=== PATIENT | female | born 1980 | race African-American/Black ===

== ENCOUNTER 2016-03-21 20:03 | Emergency (ER) | payer MEDICAID ==
[~2016-03-21] VITALS: Ht 167.6 cm; Wt 79.0 kg
[~2016-03-21 20:03] MED LIST: BUTA1CAP PO; CLIN1CAP5 PO; ULTR50TA5 PO
[2016-03-21 20:18] VITALS: BP 109/78; PULSE 92; RESP 18; TEMP 98.8; O2SAT 100
--- NOTE | 2016-03-21 22:01 | PD ---
HPI Chief Complaint: Skin Problem Time Seen by Provider: 21:56 Travel History International Travel<30 days: No Contact w/Intl Traveler<30days: No Traveled to known affect area: No History of Present Illness HPI 35-year-old female presents to the emergency department by private transportation for complaint of intermittent bruising and spots that look like a burn that occur intermittently over the past 6 months. Patient states areas are tender or sore throat time and are present but then resolved spontaneously. Patient denies any injuries that she is aware of. Patient's had no falls or contusions. Patient is not noticed these areas on the face neck had chest trunk or upper extremities. Patient only notices areas to her buttock and upper legs. Patient states seems to sputum lower legs and feet. Other family members with similar symptoms. Patient is not been seen for this complaint over the past 6 months. Patient's had no change in weight dietary intake skin tear or mucous membranes. Last menstrual period was one month ago and normal for her. Patient denies any history of autoimmune disorder or family history of autoimmune disorder. The patient rates discomfort as 0/10 intensity. Patient's had no nights sweats no chest pain no shortness of breath no cough no hemoptysis. Patient does not smoke cigarettes does not drink alcoholic beverages. PFSH Past Medical History Narrative Medical Ovarian cyst sponge kidney tubal ligation migraines occasional alcohol use family history grandmother with cancer unknown type nursing notes reviewed Cardiovascular Problems: No Diminished Hearing: No Gastrointestinal Disorders: No Genitourinary: Yes (DX AGE 16: "TOLD ME I HAD A SPONGE KIDNEY, LEFT SIDE") Musculoskeletal: No Neurologic: No Respiratory: No Immunizations Current: No Migraines: Yes Tetanus Vaccination: < 5 Years Influenza Vaccination: No ?: Not LMP: 02/18/17 : 5 Para: 5 Miscarriage: 0 : 0 Ovarian Cysts: Yes Tubal Ligation: Yes Past Surgical History Abdominal Surgery: No Cardiac Surgery: No Ear Surgery: No Endocrine Surgery: No Eye Surgery: No Genitourinary Surgery: No Gynecologic Surgery: Yes (TUBAL) Neurologic Surgery: No Oral Surgery: No Thoracic Surgery: No Other Surgery: No Social History Alcohol Use: Yes ("MAYBE TWICE A YEAR") Tobacco Use: No Substance Use: No Allergies-Medications (Allergen,Severity, Reaction): Coded Allergies: No Known Allergies (Verified , 03/21/16) Reported Meds & Prescriptions Reported Meds & Active Scripts Active No Active Prescriptions or Reported Medications Review of Systems Except as stated in HPI: all other systems reviewed are Neg General / Constitutional: No: Fever, Chills Eyes: No: Visual changes HENT: Positive: Other (no mucous membrane involvement), No: Headaches, Congestion Cardiovascular: No: Chest Pain or Discomfort, Diaphoresis, Syncope, Dyspnea on exertion Respiratory: No: Shortness of Breath, Hemoptysis Gastrointestinal: No: Nausea, Vomiting, Abdominal Pain Genitourinary: No: Dysuria, Hematuria, Flank Pain, Discharge, Vaginal Bleeding Musculoskeletal: No: Myalgias, Arthralgias Skin: No Rash, No Itching, No Lumps Neurologic: No: Weakness, Dizziness, Syncope, Focal Abnormalities, Coordination Problem Psychiatric: No: Anxiety Hematologic/Lymphatic: Positive: Easy Bruising Physical Exam Narrative GENERAL: Well-developed alert female in no acute distress no respiratory distress SKIN: Warm and dry. HEAD: Normocephalic. EYES: No scleral icterus. No injection or drainage. NECK: Supple, trachea midline. No JVD or lymphadenopathy. CARDIOVASCULAR: Regular rate and rhythm without murmurs, gallops, or rubs. RESPIRATORY: Breath sounds equal bilaterally. No accessory muscle use. GASTROINTESTINAL: Abdomen soft, non-tender, nondistended. MUSCULOSKELETAL: No cyanosis, or edema. BACK: Nontender without obvious deformity. No CVA tenderness. Data Data Last Documented VS Vital Signs Date Time Temp Pulse Resp B/P Pulse Ox O2 Delivery O2 Flow Rate FiO2 03/21/16 20:18 98.8 92 18 109/78 100 Orders Complete Blood Count With Diff (03/21/16 21:54) Act Partial Throm Time (Ptt) (03/21/16 21:54) Prothrombin Time / Inr (Pt) (03/21/16 21:54) Basic Metabolic Panel (Bmp) (03/21/16 21:54) Urinalysis - C+S If Indicated (03/21/16 21:54) Ed Urine Pregnancytest Poc (03/21/16 21:54) MDM Medical Decision Making Medical Screen Exam Complete: Yes Emergency Medical Condition: Yes Medical Record Reviewed: Yes Differential Diagnosis Coagulopathy, vasculitis, viral syndrome, autoimmune disorder Narrative Course Specimens collected and sent for resulting Scripts No Active Prescriptions or Reported Meds Jackie Alatorre MD Mar 21, 2016 22:01
== END 2016-03-21 22:56 | disposition left against medical advice (07) ==
LOC: PHED 20:03
DX: T14.8 Other injury of unspecified body region (principal)
CPT/HCPCS: 99283

== ENCOUNTER 2016-03-25 13:32 | Emergency (ER) | payer MEDICAID ==
[~2016-03-25] VITALS: Ht 167.6 cm; Wt 78.5 kg
[2016-03-25 13:39] VITALS: BP 116/60; PULSE 85; RESP 16; TEMP 98.3; O2SAT 100
--- NOTE | 2016-03-25 14:23 | PD ---
HPI Chief Complaint: Skin Problem Time Seen by Provider: 14:00 Travel History International Travel<30 days: No Contact w/Intl Traveler<30days: No Traveled to known affect area: No History of Present Illness HPI Patient is a 35 year old female who presents to the emergency department for evaluation of spontaneous bruising. Patient states it's been ongoing for approximately 6 months. She states that she'll have random bruises occur without any injury or trauma. She denies any heavy menstrual cycles, stating that her cycles last approximately 3 days in duration. She denies any other physical complaints at this time. She does report a history of migraines and anemia. PFSH Past Medical History Hx Anticoagulant Therapy: No Anemia: Yes Cardiovascular Problems: No Diabetes: No Diminished Hearing: No Gastrointestinal Disorders: No Genitourinary: Yes (DX AGE 16: "TOLD ME I HAD A SPONGE KIDNEY, LEFT SIDE") Musculoskeletal: No Neurologic: No Respiratory: No Immunizations Current: No Migraines: Yes ?: Not : 5 Para: 5 Miscarriage: 0 : 0 Ovarian Cysts: Yes Tubal Ligation: Yes Past Surgical History Abdominal Surgery: No Cardiac Surgery: No Ear Surgery: No Endocrine Surgery: No Eye Surgery: No Genitourinary Surgery: No Gynecologic Surgery: Yes (TUBAL) Neurologic Surgery: No Oral Surgery: No Thoracic Surgery: No Other Surgery: No Social History Alcohol Use: Yes ("MAYBE TWICE A YEAR") Tobacco Use: No Substance Use: No Allergies-Medications (Allergen,Severity, Reaction): Coded Allergies: No Known Allergies (Verified , 03/25/16) Reported Meds & Prescriptions Reported Meds & Active Scripts Active No Active Prescriptions or Reported Medications Review of Systems Except as stated in HPI: all other systems reviewed are Neg General / Constitutional: No: Fever, Chills HENT: No: Headaches, Lightheadedness Cardiovascular: No: Chest Pain or Discomfort Respiratory: No: Shortness of Breath Gastrointestinal: No: Nausea, Vomiting, Diarrhea, Abdominal Pain, Hematochezia Genitourinary: No: Dysuria, Hematuria Musculoskeletal: No: Myalgias Neurologic: No: Dizziness Hematologic/Lymphatic: Positive: Easy Bruising Physical Exam Narrative GENERAL: Well-nourished, well-developed patient. SKIN: Warm and dry. No significant bruising noted. HEAD: Normocephalic. EYES: No scleral icterus. No injection or drainage. NECK: Supple, trachea midline. No JVD or lymphadenopathy. CARDIOVASCULAR: Regular rate and rhythm without murmurs, gallops, or rubs. RESPIRATORY: Breath sounds equal bilaterally. No accessory muscle use. GASTROINTESTINAL: Abdomen soft, non-tender, nondistended. MUSCULOSKELETAL: No cyanosis, or edema. BACK: Nontender without obvious deformity. No CVA tenderness. Data Data Last Documented VS Vital Signs Date Time Temp Pulse Resp B/P Pulse Ox O2 Delivery O2 Flow Rate FiO2 03/25/16 13:39 98.3 85 16 116/60 100 Orders Complete Blood Count With Diff (03/25/16 14:12) Act Partial Throm Time (Ptt) (03/25/16 14:12) Prothrombin Time / Inr (Pt) (03/25/16 14:12) Labs Laboratory Tests Test 03/25/16 14:55 White Blood Count 7.6 TH/MM3 Red Blood Count 3.78 MIL/MM3 Hemoglobin 12.4 GM/DL Hematocrit 35.5 % Mean Corpuscular Volume 93.9 FL Mean Corpuscular Hemoglobin 32.8 PG Mean Corpuscular Hemoglobin 35.0 % Concent Red Cell Distribution Width 12.4 % Platelet Count 312 TH/MM3 Mean Platelet Volume 8.7 FL Neutrophils (%) (Auto) 67.8 % Lymphocytes (%) (Auto) 23.5 % Monocytes (%) (Auto) 5.1 % Eosinophils (%) (Auto) 3.0 % Basophils (%) (Auto) 0.6 % Neutrophils # (Auto) 5.2 TH/MM3 Lymphocytes # (Auto) 1.8 TH/MM3 Monocytes # (Auto) 0.4 TH/MM3 Eosinophils # (Auto) 0.2 TH/MM3 Basophils # (Auto) 0.0 TH/MM3 CBC Comment DIFF FINAL Differential Comment Prothrombin Time 11.4 SEC Prothromb Time International 1.0 RATIO Ratio Activated Partial 28.9 SEC Thromboplast Time MDM Medical Decision Making Medical Screen Exam Complete: Yes Emergency Medical Condition: Yes Interpretation(s) Vital Signs Date Time Temp Pulse Resp B/P Pulse Ox O2 Delivery O2 Flow Rate FiO2 03/25/16 13:39 98.3 85 16 116/60 100 Differential Diagnosis Coagulopathy versus bruising versus anemia versus autoimmune disease versus other Narrative Course Patient's a 35-year-old female who presented to emergency department for evaluation easy bruising. Patient denies any injuries or traumas that would've caused the bruising. She denies any heavy menstrual cycles. She states her cycles last approximately 3 days. She does endorse using ibuprofen frequently for her body aches. CBC, coags are unremarkable. Patient was reassured at this time that she was not anemic. She was encouraged to back off use of ibuprofen as this can thin the blood positive exacerbating the bruising. She was encouraged to follow-up with her primary care provider for further evaluation and management. She was encouraged to return to emergency department for any new or worsening symptoms. Patient verbalized understanding of these instructions, patient reported feeling relieved at this time. Patient is stable for discharge. Diagnosis Primary Impression: Easy bruising Referrals: Primary Care Physician Patient Instructions: General Instructions Additional Instructions: Follow-up with her primary doctor Alternate use of ibuprofen with acetaminophen for body aches and pain Return to emergency department for any new or worsening symptoms Med/Other Pt SpecificInfo: No Change to Meds Scripts No Active Prescriptions or Reported Meds Disposition: 01 DISCHARGE HOME Condition: Stable Avril Krishnamurthy Mar 25, 2016 14:23
[2016-03-25 15:08] LABS: AUTOMATED NEUTROPHIL # 5.2 TH/MM3 (1.8-7.7); BASOPHIL % 0.6 % (0.0-2.0); EOSINOPHIL # 0.2 TH/MM3 (0-0.4); HEMATOCRIT 35.5 % (35.0-46.0); HEMO FLAGS DIFF FINAL; LYMPH % 23.5 % (9.0-44.0); LYMPHOCYTE # 1.8 TH/MM3 (1.0-4.8); MEAN CELL VOLUME 93.9 FL (80.0-100.0); MEAN CORPUSCULAR HEMOGLOBIN 32.8 PG (27.0-34.0); MONO % 5.1 % (0.0-8.0); NEUT % 67.8 % (16.0-70.0); PLATELET COUNT 312 TH/MM3 (150-450); RED BLOOD COUNT 3.78 MIL/MM3 (4.00-5.30); RED CELL DISTRIBUTION WIDTH 12.4 % (11.6-17.2); WHITE BLOOD COUNT 7.6 TH/MM3 (4.0-11.0)
[2016-03-25 15:17] LABS: APTT (PATIENT) 28.9 SEC (24.3-30.1); PROTHROMBIN TIME - PATIENT 11.4 SEC (9.8-11.6)
== END 2016-03-25 16:29 | disposition home or self-care (01) ==
LOC: PHEFT 13:32
DX: R23.8 Other skin changes (principal); Z79.899 Other long term (current) drug therapy; Z86.69 Personal history of other diseases of the nervous system and sense organs; Z86.2 Personal history of diseases of the blood and blood-forming organs and certain disorders involving the immune mechanism; Z87.448 Personal history of other diseases of urinary system
CPT/HCPCS: 85025; 85610; 85730; 99283

== ENCOUNTER 2016-05-10 22:34 | Emergency (ER) | payer MEDICAID ==
[~2016-05-10] VITALS: Ht 167.6 cm; Wt 77.2 kg
[2016-05-10 22:39] VITALS: BP 109/67; PULSE 77; RESP 16; TEMP 98.6; O2SAT 97
== END 2016-05-10 23:11 | disposition left against medical advice (07) ==
LOC: PHED 22:34
DX: M79.642 Pain in left hand (principal); R22.32 Localized swelling, mass and lump, left upper limb; Z53.21 Procedure and treatment not carried out due to patient leaving prior to being seen by health care provider
CPT/HCPCS: 99281

== ENCOUNTER 2016-07-31 08:00 | Emergency (ER) | payer MEDICAID ==
[~2016-07-31] VITALS: Ht 167.6 cm; Wt 79.0 kg
[2016-07-31 08:04] VITALS: BP 112/67; PULSE 75; RESP 16; TEMP 98.2; O2SAT 100
[2016-07-31] MEDS ORDERED: IBUPROFEN 600 MG TAB PO ONE (08:30)
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
[2016-07-31 09:22] VITALS: RESP 16
== END 2016-07-31 09:23 | disposition home or self-care (01) ==
LOC: PHED 08:00
DX: S63.502A Unspecified sprain of left wrist, initial encounter (principal); D64.9 Anemia, unspecified; Y04.8XXA Assault by other bodily force, initial encounter
CPT/HCPCS: 73110; 99283

== ENCOUNTER 2016-10-17 10:30 | Emergency (ER) | payer MEDICAID ==
[~2016-10-17] VITALS: Ht 167.6 cm; Wt 80.0 kg
[2016-10-17 10:40] VITALS: BP 112/59; PULSE 74; RESP 16; TEMP 98.1; O2SAT 100
--- NOTE | 2016-10-17 11:15 | PD ---
HPI Chief Complaint: Headache Time Seen by Provider: 11:14 Travel History International Travel<30 days: No Contact w/Intl Traveler<30days: No Traveled to known affect area: No History of Present Illness HPI This 35-year-old female is complaining of headache and left-sided neck pain. She has a history of migraine headaches. In the past she has taken Midrin with good pain relief. She was recently changed to Fioricet but it made her nauseated. She's also been having pain in the left side of her neck. 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 She has been working 7 days a week recently the pain is aggravated when she works. She does not have weakness in the arm. There is been no vomiting. She is unable to work today because the headache PFSH Past Medical History Hx Anticoagulant Therapy: No Anemia: Yes Cardiovascular Problems: No Diabetes: No Diminished Hearing: No Gastrointestinal Disorders: No Genitourinary: Yes (DX AGE 16: "TOLD ME I HAD A SPONGE KIDNEY, LEFT SIDE") Musculoskeletal: No Neurologic: No Respiratory: No Immunizations Current: No Migraines: Yes Tetanus Vaccination: Unknown Influenza Vaccination: No ?: Not : 5 Para: 5 Miscarriage: 0 : 0 Ovarian Cysts: Yes Tubal Ligation: Yes (states tubes removed in 2010) Past Surgical History Abdominal Surgery: No Cardiac Surgery: No Ear Surgery: No Endocrine Surgery: No Eye Surgery: No Genitourinary Surgery: No Gynecologic Surgery: Yes (TUBAL- states tubes removed 2010) Neurologic Surgery: No Oral Surgery: No Thoracic Surgery: No Other Surgery: No Social History Alcohol Use: Yes ("MAYBE TWICE A YEAR" wine) Tobacco Use: No Substance Use: No Allergies-Medications (Allergen,Severity, Reaction): Coded Allergies: No Known Allergies (Verified , 10/17/16) Reported Meds & Prescriptions Reported Meds & Active Scripts Active No Active Prescriptions or Reported Medications Review of Systems General / Constitutional: No: Fever, Chills Eyes: No: Diploplia HENT: Positive: Headaches Cardiovascular: No: Chest Pain or Discomfort, Palpitations Respiratory: No: Cough, Shortness of Breath Gastrointestinal: No: Nausea, Vomiting Genitourinary: No: Urgency, Frequency Musculoskeletal: No: Myalgias Skin: No Rash, No Itching Neurologic: No: Weakness, Dizziness Endocrine: No: Heat Intolerance, Cold Intolerance Hematologic/Lymphatic: No: Easy Bruising Physical Exam Narrative GENERAL: Well-developed female SKIN: Focused skin assessment warm/dry. HEAD: Atraumatic. Normocephalic. EYES: Pupils equal and round. No scleral icterus. No injection or drainage. ENT: No nasal bleeding or discharge. Mucous membranes pink and moist. NECK: Trachea midline. No JVD. Some tenderness in the muscles left side of the neck and supraclavicular area CARDIOVASCULAR: Regular rate and rhythm. No murmur appreciated. RESPIRATORY: No accessory muscle use. Clear to auscultation. Breath sounds equal bilaterally. GASTROINTESTINAL: Abdomen soft, non-tender, nondistended. Hepatic and splenic margins not palpable. MUSCULOSKELETAL: No obvious deformities. No clubbing. No cyanosis. No edema. NEUROLOGICAL: Awake and alert. No obvious cranial nerve deficits. Motor grossly within normal limits. Normal speech. PSYCHIATRIC: Appropriate mood and affect; insight and judgment normal. Data Data Last Documented VS Vital Signs Date Time Temp Pulse Resp B/P Pulse Ox O2 Delivery O2 Flow Rate FiO2 10/17/16 10:40 98.1 74 16 112/59 100 MDM Medical Decision Making Medical Screen Exam Complete: Yes Emergency Medical Condition: Yes Medical Record Reviewed: Yes Differential Diagnosis Differential includes migraine headache, muscular strain, Narrative Course Patient appears to have muscular pain in the left side of her neck and I will prescribe some Flexeril. Midrin as worked well for her migraines in the past and I'll also prescribe some Midrin Diagnosis Primary Impression: Migraine headache Additional Impression: Musculoskeletal strain Scripts [id number] (Prodrin)65-20-325 Mg Tab1 Tab PO QID PRN ( MIGRAINE HEADACHE) #30 TAB Ref 0 Prov:Nhan Jacobsen MD 10/17/16 Cyclobenzaprine (Flexeril)10 Mg Tab10 Mg PO TID #30 TAB Ref 0 Prov:Nhan Jacobsen MD 10/17/16 Disposition: 01 DISCHARGE HOME Condition: Stable Nhan Jacobsen MD Oct 17, 2016 11:15
[2016-10-17] MEDS ORDERED: ACET1TAB17 PO (11:23)
[2016-10-17] MEDS ORDERED: CYCL1TAB29 PO (11:23)
== END 2016-10-17 11:51 | disposition home or self-care (01) ==
LOC: PHED 10:30
DX: G43.909 Migraine, unspecified, not intractable, without status migrainosus (principal); M54.2 Cervicalgia; Z86.69 Personal history of other diseases of the nervous system and sense organs; Z86.2 Personal history of diseases of the blood and blood-forming organs and certain disorders involving the immune mechanism; Z87.448 Personal history of other diseases of urinary system
CPT/HCPCS: 99283

== ENCOUNTER 2016-11-20 09:47 | Emergency (ER) | payer MEDICAID ==
[~2016-11-20] VITALS: Ht 167.6 cm; Wt 82.0 kg
[~2016-11-20 09:47] MED LIST changes: +ACET1TAB17 PO; -BUTA1CAP PO; -CLIN1CAP5 PO; +CYCL1TAB29 PO; -ULTR50TA5 PO
[2016-11-20 09:59] VITALS: BP 113/59; PULSE 84; RESP 18; TEMP 98.1; O2SAT 100
[2016-11-20] MEDS ORDERED: ASPIRIN 81 MG CHEW TAB PO ONE (10:00)
[2016-11-20 10:04] VITALS: O2SAT 100
[2016-11-20 10:11] LABS: AUTOMATED NEUTROPHIL # 5.2 TH/MM3 (1.8-7.7); BASOPHIL % 0.2 % (0.0-2.0); EOSINOPHIL # 0.3 TH/MM3 (0-0.4); EOSINOPHIL % 3.6 % (0.0-4.0); HEMATOCRIT 35.5 % (35.0-46.0); LYMPHOCYTE # 1.9 TH/MM3 (1.0-4.8); MEAN CORPUSCULAR HGB CONC 34.1 % (32.0-36.0); MONO % 5.6 % (0.0-8.0); NEUT % 66.6 % (16.0-70.0); PLATELET COUNT 342 TH/MM3 (150-450); RED BLOOD COUNT 3.77 MIL/MM3 (4.00-5.30); RED CELL DISTRIBUTION WIDTH 13.2 % (11.6-17.2); WHITE BLOOD COUNT 7.8 TH/MM3 (4.0-11.0)
[2016-11-20 10:12] LABS: HEMO FLAGS DIFF FINAL
[2016-11-20] MEDS: SODIUM CHLORIDE 0.9% FLUSH 10 ML FLUSH IVF PRN ×2 (10:12→10:35)
[2016-11-20 10:19] LABS: CHLORIDE 103 MEQ/L (98-107); POTASSIUM 3.5 MEQ/L (3.5-5.1); SODIUM (NA) 138 MEQ/L (136-145)
[2016-11-20 10:22] LABS: ANION GAP 8 MEQ/L (5-15); BICARBONATE 27.4 MEQ/L (21.0-32.0); BLOOD UREA NITROGEN 6 MG/DL (7-18); MAGNESIUM 2.1 MG/DL (1.5-2.5)
[2016-11-20 10:23] LABS: APTT (PATIENT) 28.5 SEC (24.3-30.1); PROTHROMBIN TIME - PATIENT 10.9 SEC (9.8-11.6)
--- NOTE | 2016-11-20 10:24 | RADRPT ---
EXAM DATE/TIME: 11/20/2016 10:07 [facility] COMPARISON: No previous studies available for comparison. INDICATIONS : Left side chest pain, short of breath. MEDICAL HISTORY : None. SURGICAL HISTORY : None. ENCOUNTER: Initial ACUITY: 2 weeks PAIN SCORE: 10/10 LOCATION: Left chest FINDINGS: A single view of the chest demonstrates the lungs to be symmetrically aerated without evidence of mas s, infiltrate or effusion. The cardiomediastinal contours are unremarkable. Osseous structures are intact. CONCLUSION: No acute disease. Prudencio Aj MD on November 20, 2016 at 10:22 Board Certified Radiologist. This report was verified electronically.
[2016-11-20 10:26] LABS: GLOMERULAR FILTRATION RATE 114 ML/MIN (>89)
[2016-11-20 10:29] LABS: CREATINE KINASE 114 U/L (26-192)
[2016-11-20] MEDS ORDERED: IBUP800T23 PO (10:30)
--- NOTE | 2016-11-20 10:30 | PD ---
HPI . Chest pain Chief Complaint: Chest Pain Time Seen by Provider: 10:20 Travel History International Travel<30 days: No Contact w/Intl Traveler<30days: No Traveled to known affect area: No History of Present Illness HPI Patient presents with a 2 week history of left-sided chest pain. Pain has been persistent and has gotten worse over the last couple of days. She reports a constant underlying soreness in her left chest wall which is exacerbated by movement. She rates her pain at 10/10 but has not taken anything for it. She does not have any associated symptoms such as cough, fever, shortness of breath , nausea, diaphoresis. PFSH Past Medical History Hx Anticoagulant Therapy: No Anemia: Yes Cardiovascular Problems: No Diabetes: No Diminished Hearing: No Gastrointestinal Disorders: No Genitourinary: Yes (DX AGE 16: "TOLD ME I HAD A SPONGE KIDNEY, LEFT SIDE") Musculoskeletal: No Neurologic: No Respiratory: No Immunizations Current: No Migraines: Yes ?: Not : 5 Para: 5 Miscarriage: 0 : 0 Ovarian Cysts: Yes Tubal Ligation: Yes (states tubes removed in 2010) Past Surgical History Abdominal Surgery: No Cardiac Surgery: No Ear Surgery: No Endocrine Surgery: No Eye Surgery: No Genitourinary Surgery: No Gynecologic Surgery: Yes (TUBAL- states tubes removed 2010) Neurologic Surgery: No Oral Surgery: No Thoracic Surgery: No Other Surgery: No Social History Alcohol Use: Yes ("MAYBE TWICE A YEAR" wine) Tobacco Use: No Substance Use: No Allergies-Medications (Allergen,Severity, Reaction): Coded Allergies: No Known Allergies (Verified , 10/17/16) Reported Meds & Prescriptions Reported Meds & Active Scripts Active Ibuprofen 800 Mg Tab 800 Mg PO Q8H PRN Prodrin (Vuqwqliuiilvf-Quztzhkm-Rnjxckmmldqaj) 65-20-325 Mg Tab 1 Tab PO QID PRN Flexeril (Cyclobenzaprine HCl) 10 Mg Tab 10 Mg PO TID Review of Systems Except as stated in HPI: all other systems reviewed are Neg General / Constitutional: Positive: Other (no diaphoresis), No: Fever, Chills Cardiovascular: Positive: Chest Pain or Discomfort Respiratory: No: Cough, Shortness of Breath Gastrointestinal: No: Nausea Physical Exam Narrative GENERAL: Patient is awake and alert and in no distress. SKIN: warm/dry. No rashes. HEAD: Normocephalic. Atraumatic. EYES: Pupils equal and round. No scleral icterus. No injection or drainage. ENT: No nasal bleeding or discharge. Mucous membranes pink and moist. NECK: Trachea midline. Full range of motion without pain.. CARDIOVASCULAR: Regular rate and rhythm. Heart sounds are normal. RESPIRATORY: No accessory muscle use. Clear to auscultation. Breath sounds equal bilaterally. Tenderness to palpation of the left chest wall. GASTROINTESTINAL: Abdomen soft. Nontender. Bowel sounds present. Nondistended. MUSCULOSKELETAL: No obvious deformities. NEUROLOGICAL: Awake and alert. No obvious cranial nerve deficits. Motor grossly within normal limits. Normal speech. PSYCHIATRIC: Appropriate mood and affect; insight and judgment normal. Data Data Last Documented VS Vital Signs Date Time Temp Pulse Resp B/P (MAP) Pulse Ox O2 Delivery O2 Flow Rate FiO2 11/20/16 10:04 100 Room Air 11/20/16 10:00 84 20 11/20/16 09:59 98.1 113/59 (77) Orders Orders Basic Metabolic Panel (Bmp) (11/20/16 10:00) Ckmb (Isoenzyme) Profile (11/20/16 10:00) Complete Blood Count With Diff (11/20/16 10:00) Magnesium (Mg) (11/20/16 10:00) Prothrombin Time / Inr (Pt) (11/20/16 10:00) Act Partial Throm Time (Ptt) (11/20/16 10:00) Troponin I (11/20/16 10:00) Chest, Single Ap (11/20/16 10:00) Ecg Monitoring (11/20/16 10:00) Iv Access Insert/Monitor (11/20/16 10:00) Oximetry (11/20/16 10:00) Aspirin Chew (Aspirin Chew) (11/20/16 10:00) Sodium Chloride 0.9% Flush (Ns Flush) (11/20/16 10:00) CKMB (11/20/16 10:05) CKMB% (11/20/16 10:05) Labs Laboratory Tests Test 11/20/16 10:05 White Blood Count 7.8 TH/MM3 Red Blood Count 3.77 MIL/MM3 Hemoglobin 12.1 GM/DL Hematocrit 35.5 % Mean Corpuscular Volume 94.0 FL Mean Corpuscular Hemoglobin 32.0 PG Mean Corpuscular Hemoglobin Concent 34.1 % Red Cell Distribution Width 13.2 % Platelet Count 342 TH/MM3 Mean Platelet Volume 7.7 FL Neutrophils (%) (Auto) 66.6 % Lymphocytes (%) (Auto) 24.0 % Monocytes (%) (Auto) 5.6 % Eosinophils (%) (Auto) 3.6 % Basophils (%) (Auto) 0.2 % Neutrophils # (Auto) 5.2 TH/MM3 Lymphocytes # (Auto) 1.9 TH/MM3 Monocytes # (Auto) 0.4 TH/MM3 Eosinophils # (Auto) 0.3 TH/MM3 Basophils # (Auto) 0.0 TH/MM3 CBC Comment DIFF FINAL Differential Comment Prothrombin Time 10.9 SEC Prothromb Time International Ratio 1.0 RATIO Activated Partial Thromboplast Time 28.5 SEC Blood Urea Nitrogen 6 MG/DL Creatinine 0.70 MG/DL Random Glucose 92 MG/DL Calcium Level 8.5 MG/DL Magnesium Level 2.1 MG/DL Sodium Level 138 MEQ/L Potassium Level 3.5 MEQ/L Chloride Level 103 MEQ/L Carbon Dioxide Level 27.4 MEQ/L Anion Gap 8 MEQ/L Estimat Glomerular Filtration Rate 114 ML/MIN Total Creatine Kinase 114 U/L [facility] Medical Decision Making Medical Screen Exam Complete: Yes Emergency Medical Condition: Yes Interpretation(s) EKG shows a normal sinus rhythm with no acute ischemic changes. Her EKG is unchanged from previous. Differential Diagnosis Differential diagnosis of chest pain includes but is not limited to musculoskeletal pain, pulmonary embolism, acute coronary syndrome, pneumonia, pleurisy Narrative Course This patient presents with a two-week history of left sided chest pain which is exacerbated by movement. Her exam is compatible with chest wall pain. Last Impressions Chest X-Ray 11/20/16 1000 Signed Impressions: Service Date/Time: Sunday, November 20, 2016 10:07 - CONCLUSION: No acute disease. Prudencio Aj MD The chest x-ray was independently viewed by me. CBC & BMP Diagram 11/20/16 10:05 Calcium Level 8.5, Magnesium Level 2.1 Trop < 0.02 CK 114 Diagnosis Primary Impression: Left-sided chest wall pain Patient Instructions: Chest Wall Pain (ED), General Instructions Med/Other Pt SpecificInfo: Prescription(s) given Scripts Ibuprofen (Ibuprofen) 800 Mg Tab 800 MG PO Q8H Y for Pain/Inflammation, #60 TAB 0 Refills Prov: Brandee Viera MD 11/20/16 Disposition: 01 DISCHARGE HOME Condition: Stable Brandee Viera MD Nov 20, 2016 10:30
[2016-11-20 10:41] LABS: CKMB 0.7 NG/ML (0.5-3.6)
[2016-11-20] MEDS ORDERED: KETOROLAC TROMETHAMINE 30 MG/ML (IVP) VIAL IV PUSH ONE (10:45)
--- NOTE | 2016-11-21 21:08 | EKG ---
Date Performed: 11/20/2016 Time Performed: 09:51:15 PTAGE: 36 years EKG: Sinus rhythm NORMAL ECG INTERPRETATION BASED ON A DEFAULT AGE OF 39 YEARS NO PREVIOUS TRACING DOCTOR: Richie Thurman Interpretating Date/Time 11/21/2016 20:57:11
== END 2016-11-20 10:50 | disposition home or self-care (01) ==
LOC: PHED 09:47
DX: R07.89 Other chest pain (principal)
CPT/HCPCS: 71010; 80048; 82550; 82552; 83735; 84484; 85025; 85610; 85730; 93005; 96374; 99284; J1885

== ENCOUNTER 2017-06-18 12:21 | Emergency (ER) | payer MEDICAID ==
[~2017-06-18] VITALS: Ht 167.6 cm; Wt 78.1 kg
[~2017-06-18 12:21] MED LIST changes: +CYCL10TA PO; -CYCL1TAB29 PO; +IBUP1TAB7 PO
[2017-06-18 12:25] VITALS: BP 126/60; PULSE 87; RESP 16; TEMP 97.8; O2SAT 100
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
== END 2017-06-18 14:30 | disposition home or self-care (01) ==
LOC: PHEFT 12:21
DX: S63.502A Unspecified sprain of left wrist, initial encounter (principal); X58.XXXA Exposure to other specified factors, initial encounter; Q61.5 Medullary cystic kidney; D64.9 Anemia, unspecified
CPT/HCPCS: 73110; 99283; L3908